=== PATIENT | female | born 1940 | race Caucasian/White ===

== ENCOUNTER 2016-05-13 05:53 | Emergency (ER) | payer BC ==
[~2016-05-13] VITALS: Ht 160 cm; Wt 73.3 kg
[2016-05-13 05:58] VITALS: TEMP 36.6; Ht 160 cm; Wt 73.3 kg
--- NOTE | 2016-05-13 06:29 | EMERGENCY ROOM VISIT NOTE ---
History Report prepared by Darlene: Ava Hall Under the Supervision of: Dr. Sandie Wang D.O. First contact with patient: 06:03 Chief Complaint: URINARY SYMPTOMS Stated Complaint: RIGHT SIDE PAIN,FEEL LIKE HAVE TO GO BATHROOM History of Present Illness The patient is a 76 year old female who presents to the Emergency Room with complaints of constant right lower quadrant abdominal pain beginning yesterday. The patient states that her pain started last week but would go away when she drank water. She reports that she feels like she has to go the bathroom all of the time but does not experience pain when she goes to the bathroom. She denies any nausea and vomiting. She denies any fever. The patient reports that she previously had some right flank pain over the last 3 months that she thought was from working out but today her pain is much worse and is not in her flank but in her right lower quadrant and suprapubic region. Source of History: patient Onset: yesterday Position: other (right side) Timing: constant Associated Symptoms: No nausea, No vomiting Note: She complains of needing to frequently urinate. Review of Systems See HPI for pertinent positives & negatives. A total of 10 systems reviewed and were otherwise negative. Past Medical & Surgical Medical Problems: (1) No chronic problems Family History Diabetes mellitus Heart disease Social History Smoking Status: Never Smoker Smokeless Tobacco Use: No Alcohol Use: none Marital Status: Housing Status: lives with significant other Occupation Status: retired Current/Historical Medications Scheduled Multivitamin (Multivitamin), 1 TAB PO DAILY Nitrofurantoin Monohyd Macro (Macrobid), 100 MG PO BID Saline ([place] Nasal [place]), 2 SPRAYS MADELYN BID Scheduled PRN Dextromethorphan-Guaifenesin (Mucinex Dm), 1 TAB PO Q12 PRN for Nasal Congestion Allergies Coded Allergies: Sulfa Drugs (Unverified Allergy, Unknown, 06/01/09) Physical Exam Vital Signs Date Time Temp Pulse Resp B/P Pulse Ox O2 Delivery O2 Flow Rate FiO2 05/13/16 05:58 36.6 98 20 134/80 97 Room Air Physical Exam HEENT: Head - normocephalic and atraumatic Pupils are equal, round, and reactive to light. Extraocular eye muscles are intact, and sclera are anicteric. Nose - moist nasal mucosa without discharge. Mouth - moist buccal mucosa. Oropharynx is nonerythematous and there is no tonsillar exudate or edema noted. Neck: Supple; no JVD, nuchal rigidity, cervical lymphadenopathy. Heart: Regular rate and rhythm. There is a normal S1 and S2 with no murmurs, clicks, or gallops appreciated. Lungs: Clear to auscultation bilaterally with no wheezes, rales, or rhonchi. Abdomen: Soft, nondistended, with good bowel sounds. There are no palpable pulsatile masses or hepatosplenomegaly. There is no guarding, rigidity, or rebound noted. Pain in the RLQ of the abdomen and suprapubic region with palpation. There is no CVA tenderness noted. Extremities: No evidence of cyanosis, clubbing, or edema. There are easily palpable peripheral pulses. Skin: warm and dry with good turgor and no rashes. Medical Decision & Procedures Laboratory Results 05/13/16 06:30 Red Blood Count 3.95, Mean Corpuscular Volume 91.4, Mean Corpuscular Hemoglobin 31.6, Mean Corpuscular Hemoglobin Concent 34.6, Mean Platelet Volume 10.0, Neutrophils (%) (Auto) 78.5, Lymphocytes (%) (Auto) 12.1, Monocytes (%) (Auto) 5.8, Eosinophils (%) (Auto) 3.0, Basophils (%) (Auto) 0.2, Neutrophils # (Auto) 6.65, Lymphocytes # (Auto) 1.02, Monocytes # (Auto) 0.49, Eosinophils # (Auto) 0.25, Basophils # (Auto) 0.02 05/13/16 06:30 Test 05/13/16 06:10 05/13/16 06:30 Urine Color DK YELLOW Urine Appearance TURBID (CLEAR) Urine pH 5.0 (4.5-7.5) Urine Specific [place] 1.019 (1.000-1.030) Urine Protein 3+ (NEG) Urine Glucose (UA) NEG (NEG) Urine Ketones 1+ (NEG) Urine Occult Blood 3+ (NEG) Urine Nitrite POS (NEG) Urine Bilirubin NEG (NEG) Urine Urobilinogen NEG (NEG) Urine Leukocyte Esterase LARGE (NEG) Urine WBC (Auto) >30 /hpf (0-5) Urine RBC (Auto) >30 /hpf (0-4) Urine Hyaline Casts (Auto) 1-5 /lpf (0-5) Urine Epithelial Cells (Auto) >30 /lpf (0-5) Urine Bacteria (Auto) 1+ (NEG) White Blood Count 8.46 K/uL (4.8-10.8) Red Blood Count 3.95 M/uL (4.2-5.4) Hemoglobin 12.5 g/dL (12.0-16.0) Hematocrit 36.1 % (37-47) Mean Corpuscular Volume 91.4 fL (80-100) Mean Corpuscular Hemoglobin 31.6 pg (25-34) Mean Corpuscular Hemoglobin Concent 34.6 g/dl (32-36) Platelet Count 264 K/uL (130-400) Mean Platelet Volume 10.0 fL (7.4-10.4) Neutrophils (%) (Auto) 78.5 % Lymphocytes (%) (Auto) 12.1 % Monocytes (%) (Auto) 5.8 % Eosinophils (%) (Auto) 3.0 % Basophils (%) (Auto) 0.2 % Neutrophils # (Auto) 6.65 K/uL (1.4-6.5) Lymphocytes # (Auto) 1.02 K/uL (1.2-3.4) Monocytes # (Auto) 0.49 K/uL (0.11-0.59) Eosinophils # (Auto) 0.25 K/uL (0-0.5) Basophils # (Auto) 0.02 K/uL (0-0.2) RDW Standard Deviation 44.9 fL (36.4-46.3) RDW Coefficient of Variation 13.4 % (11.5-14.5) Immature Granulocyte % (Auto) 0.4 % Immature Granulocyte # (Auto) 0.03 K/uL (0.00-0.02) Anion Gap 11.0 mmol/L (3-11) Est Creatinine Clear Calc Drug Dose 56.7 ml/min Estimated GFR () 81.8 Estimated GFR (Non- 70.5 BUN/Creatinine Ratio 22.0 (10-20) Calcium Level 9.4 mg/dl (8.5-10.1) Laboratory results per my review. Procedure 0647: Sodium Chloride 500 ml @ 999 mls/hr IV. 0715: Macrobid Cap 100mg PO. ED Course 0603: Past medical records reviewed. The patient was evaluated in room A12. A complete history and physical exam was performed. An IV lock was initiated and labs were drawn as above. 0627: The patient's bladder scan was 0. 0647: Sodium Chloride 500 ml @ 999 mls/hr IV. 0651: The patient got a 500cc bolus of saline. 0652: I reevaluated the patient. She feels better and is not in as much pain. She declined wanting anything for pain. 0715: Macrobid Cap 100mg PO. 0718: Upon reevaluation, the patient was hemodynamically stable. I discussed findings and results with the patient. She verbalized agreement of the treatment plan. The patient was discharged home. Medical Decision The patient is a 76 year old female who presents to the ED with pain in the right side. Differential diagnosis includes pyelonephritis, cystitis, appendicitis, and diverticulitis. LABS: WBC normal Stable H&H Urinalysis is dark yellow and turbid in color, 1+ ketones, 3+ blood, positive nitrite Large leukocyte esterase >30 WBC >30 RBC 1+ Bacteria renal functions normal glucose 108 electrolytes normal This is a 76-year-old relatively healthy female patient who presents to the emergency department with a fairly sudden onset of right lower quadrant suprapubic abdominal pain. She also describes significant urinary urgency. There is no leukocytosis. We did discuss the possibility of appendicitis. However, the patient has such significant urinary symptoms and a urinalysis consistent with UTI. The patient will take Macrobid twice a day. I strongly encouraged her to follow-up with her PCP within the next 48 hours if symptoms are not improving. She was told to return to the emergency department if she developed any fever, vomiting or worsening pain into the right CVA that would indicate pyelonephritis. Impression Primary Impression: Cystitis Scribe Attestation The scribe's documentation has been prepared under my direction and personally reviewed by me in its entirety. I confirm that the note above accurately reflects all work, treatment, procedures, and medical decision making performed by me. Departure Information Dispostion Home / Self-Care Prescriptions Nitrofurantoin Monohyd Macro (MACROBID) 100 Mg Cap 100 MG PO BID, #10 CAP Prov: Sandie Wang D.OBisi 05/13/16 Referrals No Doctor, Assigned (PCP) Forms HOME CARE DOCUMENTATION FORM, IMPORTANT VISIT INFORMATION Patient Instructions My [facility], UTI Additional Instructions Rest. take plenty of clear liquids tylenol for pain Macrobid - 1 tab. every 12 hours Return to the ER if symptoms worsen.
[2016-05-13] MEDS ORDERED: MULT-506 PO (06:30)
[2016-05-13] MEDS ORDERED: DEXT30TA7 PO (06:31)
[2016-05-13] MEDS ORDERED: SALI0.6510 NAE (06:31)
[2016-05-13 06:42] LABS: BASO % 0.2 %; BASO ABS # 0.02 K/uL (0-0.2); COMPLETE YES; HEMATOCRIT 36.1 % (37-47); IG% 0.4 %; LYMPH % 12.1 %; LYMPH ABS # 1.02 K/uL (1.2-3.4); MEAN CELL VOLUME 91.4 fL (80-100); MEAN CORPUSCULAR HEMOGLOBIN 31.6 pg (25-34); MEAN CORPUSCULAR HGB CONC 34.6 g/dl (32-36); MONO % 5.8 %; NEUT % 78.5 %; PLATELET COUNT 264 K/uL (130-400); RED BLOOD COUNT 3.95 M/uL (4.2-5.4); WHITE BLOOD COUNT 8.46 K/uL (4.8-10.8)
[2016-05-13] MEDS ORDERED: SODIUM CHLORIDE 0.9% 500ML 500 ML IV STA (06:47)
[2016-05-13 06:53] LABS: URINE APPEARANCE TURBID (CLEAR); URINE BILIRUBIN NEG (NEG); URINE COLOR DK YELLOW; URINE EPITHELIAL CELL AUTO >30 /lpf (0-5); URINE NITRITE POS (NEG); URINE SPECIFIC GRAVITY 1.019 (1.000-1.030); UROBILINOGEN NEG (NEG)
[2016-05-13 06:54] LABS: MANUAL MICROSCOPIC REQUIRED? NO; REVIEW REQ? NO
[2016-05-13 07:00] LABS: CALCIUM 9.4 mg/dl (8.5-10.1); CREATININE 0.81 mg/dl (0.60-1.20); POTASSIUM 3.9 mmol/L (3.5-5.1)
[2016-05-13] MEDS ORDERED: NITR1CAP16 PO (07:10)
[2016-05-13] MEDS ORDERED: NITROFURANTOIN MONOHYDRATE 100 MG CAP PO ONE (07:15)
[2016-05-13 07:28] VITALS: BP 127/68; PULSE 77; O2SAT 98
--- NOTE | 2016-05-15 14:18 | Pharmacy Progress Note ---
ED Pharmacist Culture FollowUp Date of Service: May 15, 2016. Patient was sent home with a prescription for Macrobid, which should cover the E. coli growing from the patient's urine culture.
== END 2016-05-13 07:36 | disposition home or self-care (01) ==
LOC: C.EDB 05:56 → C.EDA 07:36
DX: N30.90 Cystitis, unspecified without hematuria (principal)

== ENCOUNTER → 2016-05-14 | Outpatient (CLI) | payer BC ==
[~2016-05-14] MED LIST: DEXT30TA7 PO; MULT-506 PO; NITR1CAP16 PO; OPTIRAY 320 IV PRN; SALI0.6510 NAE
--- NOTE | 2016-05-14 14:53 | DIAGNOSTIC IMAGING REPORT ---
CT SCAN OF THE ABDOMEN AND PELVIS WITH IV CONTRAST CLINICAL HISTORY: Right lower quadrant abdominal pain. COMPARISON STUDY: Abdominal CT dated 02/09/2008. Renal ultrasound dated 10/12/2007. TECHNIQUE: Following the IV administration of 92 cc of Optiray 320, CT scan of the abdomen and pelvis is performed from the lung bases to the proximal femora. Images are reviewed in the axial, sagittal, and coronal planes. IV contrast was administered without complication. Automated dose control exposure was utilized. CT DOSE: 386.11 mGy.cm FINDINGS: Lung bases: The heart is mildly enlarged and without pericardial effusion. The coronary arteries are calcified. There is a small hiatal hernia. There is a fat-containing Bochdalek hernia at the right lung base. Dependent atelectasis is noted. No airspace consolidation or pleural effusion is identified. Liver: The contrast-enhanced liver is normal in size, contour, and attenuation. A 1.8 cm cyst is identified in the left lobe. There is no intrahepatic biliary ductal dilatation. The hepatic veins and portal veins are patent. Gallbladder: Unremarkable. Spleen: Normal in size and attenuation. 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 The pancreas is otherwise normal in appearance. Adrenal glands: Unremarkable. Kidneys: The contrast enhanced kidneys demonstrate cortical atrophy. No hydronephrosis is seen. There is urothelial thickening and enhancement identified involving the left renal collecting system and the left ureter. There is mild surrounding periureteric stranding. Mild fullness is noted in the left renal collecting system. There is also mild fullness of the right renal collecting system. 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 Urothelial thickening and enhancement with mild surrounding stranding is seen involving the right upper pole ureter. The appearance suggests ascending infection. The kidneys enhance symmetrically. A 3.3 cm cyst arising from the upper pole the right kidney has modestly increased in size during back to 2007. Abdominal vasculature: The abdominal aorta is normal in course and caliber noting minimal atherosclerotic calcification. Bowel: The small bowel and colon are normal in course and caliber. There are scattered colonic diverticula without CT evidence of acute diverticulitis. The appendix is well-visualized and normal. Peritoneum: There is no intraperitoneal free air or abdominal ascites. There is a small fat-containing umbilical hernia. Lymphadenopathy: None. Pelvic viscera: The bladder wall appears slightly thickened and hyperemic. There is minimal pericystic stranding. The uterus and adnexa are normal as visualized. Skeletal structures: The skeletal structures are osteopenic. There is lumbosacral spondylosis and scoliosis. No lytic or blastic lesions are seen. IMPRESSION: 1. The bladder wall appears thickened and hyperemic. Mild pericystic infiltration is identified. The appearance suggests cystitis. Correlation with clinical findings and urinalysis will be required. 2. There is urothelial thickening and enhancement seen within the left renal pelvis and the left ureter. 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 There is associated periureteric stranding, and the appearance suggests ascending urinary tract infection. Again, clinical correlation will be required. 3. Mild cardiomegaly. 4. Additional findings as above. Electronically signed by: Chay Lofton M.D. 05/14/2016 2:51 PM Dictated Date/Time: 05/14/2016 2:40 PM
== END | disposition home or self-care (01) ==
LOC: C.CTS 12:08
PROVIDERS: ATTEND Nurse Practitioner Family
DX: R10.31 Right lower quadrant pain (principal)

== ENCOUNTER → 2016-05-20 | Outpatient (CLI) | payer BC ==
[~2016-05-20] MED LIST changes: -OPTIRAY 320 IV PRN
--- NOTE | 2016-05-20 16:18 | MAMMOGRAPHY REPORT ---
BILATERAL DIGITAL SCREENING MAMMOGRAM WITH CAD: 05/20/2016 CLINICAL HISTORY: Routine screening examination. TECHNIQUE: Bilateral CC and MLO views were obtained. Current study was also evaluated with a Compu ter Aided Detection (CAD) system. COMPARISON: Comparison is made to exams dated: 05/17/2015 mammogram, 05/16/2014 mammogram, 05/04/2012 m ammogram, 05/10/2013 mammogram, 04/17/2011 mammogram, and 04/01/2010 mammogram - [facility]. BREAST COMPOSITION: The tissue of both breasts is almost entirely fatty. FINDINGS: A few punctate benign-appearing microcalcifications are stable in each breast. No suspic ious mass, architectural distortion or cluster of microcalcifications is seen. IMPRESSION: ACR BI-RADS CATEGORY 1: NEGATIVE There is no mammographic evidence of malignancy. A 1 year screening mammogram is recommended. The p atient will receive written notification of the results. Approximately 10% of breast cancers are not detected with mammography. A negative mammographic repor t should not delay biopsy if a clinically suggestive mass is present. Senait Garcia M.D. ay/:05/20/2016 13:42:04 Global Transportation Manager: Marichuy HAYWARD(Marcellus)(Afshan), [facility] letter sent: Normal 1/2 BI-RADS Code: ACR BI-RADS Category 1: Negative
== END | disposition home or self-care (01) ==
LOC: C.MAMM 07:53
PROVIDERS: ATTEND Family Medicine
DX: Z12.31 Encounter for screening mammogram for malignant neoplasm of breast (principal)

== ENCOUNTER → 2016-05-26 | Outpatient (CLI) | payer BC ==
[~2016-05-26] MED LIST changes: -NITR1CAP16 PO
--- NOTE | 2016-05-26 11:23 | DIAGNOSTIC IMAGING REPORT ---
ULTRASOUND KIDNEYS AND BLADDER CLINICAL HISTORY: Renal cyst. COMPARISON STUDY: Abdominal CT dated 05/14/2016 and 10/01/2007. Renal ultrasound dated . TECHNIQUE: Real-time, grayscale, and color flow sonography of the kidneys and bladder is performed. Images are reviewed in the transverse and longitudinal planes. FINDINGS: Kidneys: The kidneys are atrophic. The right kidney measures 10.6 x 3.9 x 4.5 cm and the left kidney measures 10.2 x 5.3 x 4.2 cm. There is no hydronephrosis. No shadowing renal calculi are identified. A 2.8 cm cyst is noted in the upper pole of the right kidney. There is no sonographic evidence of solid mass lesion. No perinephric fluid is identified. Bladder: The bladder is normal in appearance. Bilateral ureteral jets were seen. IMPRESSION: 1. The kidneys are atrophic and without hydronephrosis. 2. The bladder is normal as visualized. 3. A right renal cyst is again noted. Electronically signed by: Chay Lofton M.D. 05/26/2016 11:22 AM Dictated Date/Time: 05/26/2016 11:20 AM
== END | disposition home or self-care (01) ==
LOC: C.ULTRBC 10:48
PROVIDERS: ATTEND Nurse Practitioner Family
DX: N28.1 Cyst of kidney, acquired (principal); N12 Tubulo-interstitial nephritis, not specified as acute or chronic

== ENCOUNTER → 2016-06-06 | Outpatient (CLI) | payer BC ==
[2016-06-06 11:25] LABS: CHOLESTEROL/HDL RATIO 3.2
== END | disposition home or self-care (01) ==
LOC: C.LABBC 08:44
PROVIDERS: ATTEND Nurse Practitioner Family
DX: E78.5 Hyperlipidemia, unspecified (principal)

== ENCOUNTER → 2016-10-20 | Outpatient (CLI) | payer BC ==
[~2016-10-20] MED LIST changes: +AMOX500C3 PO; +ZCR10 PO
[2016-10-20 11:39] LABS: CHOLESTEROL/HDL RATIO 3.3
== END | disposition home or self-care (01) ==
LOC: C.LABBC 08:51
PROVIDERS: ATTEND Nurse Practitioner Family
DX: E78.5 Hyperlipidemia, unspecified (principal)

== ENCOUNTER → 2017-01-15 | Outpatient (CLI) | payer BC ==
[~2017-01-15] MED LIST changes: -AMOX500C3 PO; -ZCR10 PO
== END | disposition home or self-care (01) ==
LOC: C.MAMM 15:22
PROVIDERS: ATTEND Family Medicine
DX: M85.851 Other specified disorders of bone density and structure, right thigh (principal); M85.852 Other specified disorders of bone density and structure, left thigh; M85.88 Other specified disorders of bone density and structure, other site

== ENCOUNTER 2017-04-02 14:03 | Emergency (ER) | payer BC ==
[~2017-04-02] VITALS: Ht 154.9 cm; Wt 74.6 kg
[2017-04-02] MEDS ORDERED: SODIUM CHLORIDE 0.9% 500ML 500 ML IV ONE (14:47)
[2017-04-02] MEDS ORDERED: AMOX500C3 PO (15:11)
[2017-04-02] MEDS ORDERED: ZCR10 PO (15:18)
[2017-04-02 15:39] LABS: BASO % 0.1 %; BASO ABS # 0.01 K/uL (0-0.2); COMPLETE YES; EOS % 2.2 %; HEMATOCRIT 35.3 % (37-47); IG% 0.2 %; LYMPH % 7.9 %; LYMPH ABS # 0.89 K/uL (1.2-3.4); MEAN CELL VOLUME 92.4 fL (80-100); MEAN CORPUSCULAR HEMOGLOBIN 31.4 pg (25-34); MEAN PLATELET VOLUME 9.6 fL (7.4-10.4); MONO % 7.1 %; NEUT % 82.5 %; PLATELET COUNT 226 K/uL (130-400); RED BLOOD COUNT 3.82 M/uL (4.2-5.4); WHITE BLOOD COUNT 11.28 K/uL (4.8-10.8)
[2017-04-02 15:58] LABS: BUN/CREATININE RATIO 15.6 (10-20); C-REACTIVE PROTEIN 11.8 mg/dl (0-0.29); CALCIUM 9.1 mg/dl (8.5-10.1); CREATININE 0.95 mg/dl (0.60-1.20); POTASSIUM 3.9 mmol/L (3.5-5.1)
[2017-04-02 16:03] VITALS: Ht 154.9 cm; Wt 74.6 kg
[2017-04-02 16:16] LABS: URINE APPEARANCE CLEAR (CLEAR); URINE BILIRUBIN NEG (NEG); URINE COLOR YELLOW; URINE EPITHELIAL CELL AUTO 20-30 /lpf (0-5); URINE NITRITE NEG (NEG); URINE SPECIFIC GRAVITY 1.017 (1.000-1.030); UROBILINOGEN NEG (NEG)
[2017-04-02 16:18] LABS: MANUAL MICROSCOPIC REQUIRED? NO; REVIEW REQ? NO
--- NOTE | 2017-04-02 16:43 | EMERGENCY ROOM VISIT NOTE ---
History First contact with patient: 14:33 Chief Complaint: RASH Stated Complaint: BURNT SKIN History of Present Illness The patient is a 76 year old female who presents to the Emergency Room with complaints of skin rash that started 2 days ago. Patient states that she was seen by her PCP on Thursday for sinus infection, and was placed on amoxicillin for this. She started with a rash on her chest the next day, which she attributed to receiving a flu shot the day before as well. The rash then spread to her groin area and her lower back. She states that the rash is slightly painful, describes as a mild ache and burning, 05/06 she has not taken any medications for the rash. She states that she had continue taking the amoxicillin including a dose this morning, and she was instructed by the dermatology clinic not stop taking this. 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 The patient reports that she is feeling generally fatigued and "under the weather"but denies any fevers or chills, nausea, vomiting, headaches, chest pain, shortness of breath, dizziness or syncope, abdominal pain, diarrhea or constipation, urinary symptoms. She denies any drainage from the rash. Review of Systems A complete 10 point review of systems was reviewed with the patient with pertinent positives and negatives as per history of present illness. All else were negative. Past Medical/Surgical History Medical Problems: (1) No chronic problems Family History Diabetes mellitus Heart disease Social History Smoking Status: Never Smoker Alcohol Use: none Marital Status: Housing Status: lives with significant other Occupation Status: retired Current/Historical Medications Scheduled Amoxicillin (Amoxil), 500 MG PO TID Saline ([place] Nasal [place]), SPRAYS MADELYN BID Simvastatin (Simvastatin), 10 MG PO HS Scheduled PRN Dextromethorphan-Guaifenesin (Mucinex Dm), 1 TAB PO Q12 PRN for Nasal Congestion Allergies Reviewed in chart Physical Exam Vital Signs Date Time Temp Pulse Resp B/P (MAP) Pulse Ox O2 Delivery O2 Flow Rate FiO2 04/02/17 17:17 88 18 143/68 97 Room Air 04/02/17 17:15 86 04/02/17 16:17 89 04/02/17 16:12 88 15 144/70 Room Air 04/02/17 16:04 Room Air 04/02/17 14:12 36.8 88 18 132/77 95 Room Air Physical Exam CONSTITUTIONAL: No acute distress, nontoxic appearing. Mildly dehydrated. Alert and oriented X 4 with normal affect. HEENT: Normocephalic, atraumatic. PERRL, EOMI, normal conjunctiva. TMs normal. Pharynx normal. No lesions on the lips or oral mucosa. Tachy mucus membranes. NECK: Supple, full active range of motion without discomfort. RESPIRATORY: Clear to auscultation bilaterally with no wheezing, crackles, rhonchi or stridor. Equal expansion bilaterally. CARDIOVASCULAR: Regular rate and rhythm with no murmurs, rubs or gallops. Normal peripheral perfusion. No edema. GASTROINTESTINAL: Soft, nontender, nondistended. Bowel sounds present in all quadrants. MUSCULOSKELETAL: Full range of motion of all joints without discomfort. INTEGUMENTARY: There is an erythematous, indurated rash noted to the chest, lower abdomen and genital area, lower back and buttocks, left upper arm, and bilateral armpits. It is hot to touch, mildly tender, with several areas of desquamation noted. No active blisters. No drainage noted. Skin sloughs off with applied pressure. NEUROLOGIC: Cranial nerves II-XII grossly intact. No focal neurologic deficits noted. Medical Decision & Procedures Laboratory Results 04/02/17 15:15 Red Blood Count 3.82, Mean Corpuscular Volume 92.4, Mean Corpuscular Hemoglobin 31.4, Mean Corpuscular Hemoglobin Concent 34.0, Mean Platelet Volume 9.6, Neutrophils (%) (Auto) 82.5, Lymphocytes (%) (Auto) 7.9, Monocytes (%) (Auto) 7.1, Eosinophils (%) (Auto) 2.2, Basophils (%) (Auto) 0.1, Neutrophils # (Auto) 9.31, Lymphocytes # (Auto) 0.89, Monocytes # (Auto) 0.80, Eosinophils # (Auto) 0.25, Basophils # (Auto) 0.01 04/02/17 15:15 Test 04/02/17 15:15 04/02/17 15:43 04/02/17 15:45 White Blood Count 11.28 K/uL (4.8-10.8) Red Blood Count 3.82 M/uL (4.2-5.4) Hemoglobin 12.0 g/dL (12.0-16.0) Hematocrit 35.3 % (37-47) Mean Corpuscular Volume 92.4 fL (80-100) Mean Corpuscular Hemoglobin 31.4 pg (25-34) Mean Corpuscular Hemoglobin Concent 34.0 g/dl (32-36) Platelet Count 226 K/uL (130-400) Mean Platelet Volume 9.6 fL (7.4-10.4) Neutrophils (%) (Auto) 82.5 % Lymphocytes (%) (Auto) 7.9 % Monocytes (%) (Auto) 7.1 % Eosinophils (%) (Auto) 2.2 % Basophils (%) (Auto) 0.1 % Neutrophils # (Auto) 9.31 K/uL (1.4-6.5) Lymphocytes # (Auto) 0.89 K/uL (1.2-3.4) Monocytes # (Auto) 0.80 K/uL (0.11-0.59) Eosinophils # (Auto) 0.25 K/uL (0-0.5) Basophils # (Auto) 0.01 K/uL (0-0.2) RDW Standard Deviation 44.6 fL (36.4-46.3) RDW Coefficient of Variation 13.3 % (11.5-14.5) Immature Granulocyte % (Auto) 0.2 % Immature Granulocyte # (Auto) 0.02 K/uL (0.00-0.02) Erythrocyte Sedimentation Rate 50 mm/hr (0-21) Anion Gap 7.0 mmol/L (3-11) Est Creatinine Clear Calc Drug Dose 46.5 ml/min Estimated GFR () 67.4 Estimated GFR (Non- 58.2 BUN/Creatinine Ratio 15.6 (10-20) Calcium Level 9.1 mg/dl (8.5-10.1) Total Bilirubin 0.8 mg/dl (0.2-1) Direct Bilirubin 0.2 mg/dl (0-0.2) Aspartate Amino Transf (AST/SGOT) 18 U/L (15-37) Alanine Aminotransferase (ALT/SGPT) 20 U/L (12-78) Alkaline Phosphatase 128 U/L (45-117) C-Reactive Protein 11.80 mg/dl (0-0.29) Total Protein 7.9 gm/dl (6.4-8.2) Albumin 3.6 gm/dl (3.4-5.0) Lactic Acid Level 1.7 mmol/L (0.4-2.0) Urine Color YELLOW Urine Appearance CLEAR (CLEAR) Urine pH 5.0 (4.5-7.5) Urine Specific [place] 1.017 (1.000-1.030) Urine Protein TRACE (NEG) Urine Glucose (UA) NEG (NEG) Urine Ketones 1+ (NEG) Urine Occult Blood TRACE (NEG) Urine Nitrite NEG (NEG) Urine Bilirubin NEG (NEG) Urine Urobilinogen NEG (NEG) Urine Leukocyte Esterase MODERATE (NEG) Urine WBC (Auto) 5-10 /hpf (0-5) Urine RBC (Auto) 0-4 /hpf (0-4) Urine Hyaline Casts (Auto) 1-5 /lpf (0-5) Urine Epithelial Cells (Auto) 20-30 /lpf (0-5) Urine Bacteria (Auto) NEG (NEG) Medications Administered Medications (Trade) Dose Ordered Sig/Reddy Route Start Time Stop Time Status Last Admin Dose Admin Sodium Chloride 500 ml @ 1,000 mls/hr Q30M ONCE IV 04/02/17 14:47 04/02/17 15:16 DC 04/02/17 15:57 1,000 MLS/HR Medical Decision CC: Patient presenting with complaint of rash Interpretation of Labs: Mild leukocytosis with left shift, no anemia, no significant electrolyte abnormalities, normal renal function, normal liver enzymes. Significantly elevated inflammatory markers. Lactic acid within normal limits. UA shows leukocyte esterase with 5-10 WBCs with large epithelials, no nitrite and no bacteria, suspect contaminant. Differential Diagnosis: Includes, but not limited to cellulitis, drug eruption, Galvin-Juvenal syndrome, TEN, scalded skin syndrome, allergic reaction, bacteremia/sepsis, dehydration, renal failure, among others. Medication Reconciliation: I attest that I have personally reviewed the patient' s current medication list. Vital signs review: I reviewed the patient's vital signs and interpret them as follows: T: Afebrile; BP: Normotensive; HR: Within normal limits; RR: Within normal limits; Pulse Ox: Within normal limits on room air. Blood pressure screening: The patient was found to have elevated blood pressure on screening and was encouraged to follow-up with her PCP for repeat blood pressure check. Summary: Patient was evaluated at bedside, history and physical exam performed. Patient is alert and oriented, in no acute distress and nontoxic appearing. She is resting calmly in the stretcher. Patient has significant erythematous, indurated, desquamating rash involving her groin, lower back and buttocks, chest, arms and axilla. Skin sloughing off in several areas. Positive Nikolsky's sign. 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 Based on this concerning diagnosis, the patient will require transfer to a burn center for further management, as we do not offer those services here. Orders were placed at bedside for labs, UA, IV fluids for hydration. Patient denies any pain at this time. Patient discussed with Dr. Molina, who agrees with my assessment and plan. Labs reviewed as above, notable for some leukocytosis and significant elevated inflammatory markers. Normal renal function and normal lactate. Call placed to [facility] at 1630, awaiting their call back. Spoke with Dr. Diaz, [facility] Burn Surgeon at 1700, she is willing to accept the patient as a transfer for direct admission to their inpatient burn unit. She recommended keeping the patient on maintenance IV fluids of NSS at 100mL/hr. Patient reassessed multiple times throughout ED stay, she remains stable and without any complaints. I updated the patient on plan for transfer to [facility] burn unit, she verbalized understanding and agreeable to this plan. Patient is awaiting transfer at 1915. 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 (PCP) Patient Instructions My [facility]
[2017-04-02] MEDS ORDERED: SODIUM CHLORIDE 0.9% 1000ML 1,000 ML IV STA (17:23)
[2017-04-02] MEDS ORDERED: ACETAMINOPHEN 500 MG TAB PO STA (19:35)
--- NOTE | 2017-04-02 19:38 | EMERGENCY ROOM VISIT NOTE ---
ED Visit Note First contact with patient: 16:14 I have personally evaluated and examined this patient. I agree with assessment and plan of Candida Lynn NP. Patient with diffuse erythema, areas of sloughing skin all started shortly after beginning Amoxicillin. 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 Given severity will need monitoring at burn center. Stable throughout ED stay.
[2017-04-02 19:44] VITALS: BP 124/65; PULSE 80; TEMP 36.8; O2SAT 98
== END 2017-04-02 19:45 | disposition short-term general hospital (02) ==
LOC: C.EDB 14:04 → C.EDD 19:45
DX: L51.3 Stevens-Johnson syndrome-toxic epidermal necrolysis overlap syndrome (principal); T36.0X5A Adverse effect of penicillins, initial encounter; Z83.3 Family history of diabetes mellitus; Z79.899 Other long term (current) drug therapy; E86.0 Dehydration

== ENCOUNTER → 2017-05-22 | Outpatient (CLI) | payer BC ==
[~2017-05-22] MED LIST changes: +AMOX500C3 PO; -MULT-506 PO; +ZCR10 PO
--- NOTE | 2017-05-22 13:26 | MAMMOGRAPHY REPORT ---
BILATERAL DIGITAL SCREENING MAMMOGRAM TOMOSYNTHESIS WITH CAD: 05/22/2017 CLINICAL HISTORY: Routine screening. Patient has no complaints. TECHNIQUE: Breast tomosynthesis in addition to standard 2D mammography was performed. Current study was also evaluated with a Computer Aided Detection (CAD) system. COMPARISON: Comparison is made to exams dated: 05/20/2016 mammogram, 05/17/2015 mammogram, 05/16/2014 m ammogram, 05/10/2013 mammogram, 05/04/2012 mammogram, and 04/17/2011 mammogram - [facility] enter. BREAST COMPOSITION: The tissue of both breasts is almost entirely fatty. FINDINGS: No suspicious masses, calcifications, or areas of architectural distortion are noted in ei ther breast. There has been no significant interval change compared to prior exams. IMPRESSION: ACR BI-RADS CATEGORY 1: NEGATIVE There is no mammographic evidence of malignancy. A 1 year screening mammogram is recommended. The pa tient will receive written notification of the results. Approximately 10% of breast cancers are not detected with mammography. A negative mammographic report should not delay biopsy if a clinically suggestive mass is present. Florencia Shen M.D. /:05/22/2017 08:22:15 [employer] Supervisor: Jennifer HAYWARD(Marcellus)(M), [facility] letter sent: Normal 1/2 BI-RADS Code: ACR BI-RADS Category 1: Negative
== END | disposition home or self-care (01) ==
LOC: C.MAMM 08:09
PROVIDERS: ATTEND Family Medicine
DX: Z12.31 Encounter for screening mammogram for malignant neoplasm of breast (principal)